=== PATIENT | female | born 1980 | race Caucasian/White ===

== ENCOUNTER 2016-12-01 10:04 | Emergency (ER) | payer OTHER ==
[~2016-12-01] VITALS: Ht 157.5 cm; Wt 68.5 kg
[~2016-12-01 10:04] MED LIST: ACET-2158 PO; Lanolin TOP; PREN-39 PO
[2016-12-01 10:06] VITALS: Ht 157.5 cm; Wt 68.5 kg
[2016-12-01] MEDS ORDERED: ONDANSETRON (ODT) 4 MG TAB ODT STA (11:31)
[2016-12-01 11:51] LABS: ADD SCAN DIFF NO
[2016-12-01 11:57] LABS: BASOPHILS % 0.5 % (0.0-2.0); EOSINOPHILS # 0.1 10^3/ul (0.0-0.5); EOSINOPHILS % 2.1 % (0.0-7.0); HEMATOCRIT 39.1 % (37.0-47.0); HEMOGLOBIN 13.2 g/dl (12.0-16.0); LYMPHOCYTES # 1.9 10^3/ul (0.8-2.9); LYMPHOCYTES % 32.2 % (15.0-51.0); MEAN CORPUSCULAR HEMOGLOBIN 28.7 pg (29.0-33.0); MEAN CORPUSCULAR HGB CONC 33.8 g/dl (32.0-37.0); MEAN PLATELET VOLUME 9.9 fl (7.4-10.4); MONOCYTE # 0.7 10^3/ul (0.3-0.9); MONOCYTES % 11.6 % (0.0-11.0); NEUTROPHIL # 3.1 10^3/ul (1.6-7.5); NEUTROPHILS % 53.4 % (39.0-77.0); PLATELET COUNT 250 10^3/UL (140-415); WHITE BLOOD COUNT 5.8 10^3/ul (4.8-10.8)
[2016-12-01] MEDS ORDERED: HYDROCODONE/APAP (5/325) TAB PO ONE (12:00)
[2016-12-01 12:11] LABS: ALBUMIN 4.9 g/dl (3.3-4.9); ALBUMIN/GLOBULIN RATIO 1.81; BILIRUBIN,INDIRECT 0.6 mg/dl (0-1.1); BILIRUBIN,TOTAL 0.6 mg/dl (0.2-1.3); CREATININE 0.6 mg/dl (0.44-1.00); POTASSIUM 4.1 mmol/L (3.5-5.1); TOTAL PROTEIN 7.6 g/dl (6.1-8.1)
[2016-12-01 12:15] LABS: ADD UMIC YES; URINE BILIRUBIN (Dip) NEGATIVE (NEGATIVE); URINE BLOOD (Dip) TRACE (NEGATIVE); URINE COLOR LT. YELLOW (YELLOW); URINE GLUCOSE (Dip) NEGATIVE (NEGATIVE); URINE KETONES (Dip) NEGATIVE (NEGATIVE); URINE LEUKOCYTE ESTERASE (Dip) 1+ (NEGATIVE); URINE NITRITE (Dip) NEGATIVE (NEGATIVE); URINE TOTAL PROTEIN (Dip) NEGATIVE (NEGATIVE); URINE UROBILINOGEN (Dip) 0.2 E.U./dL (0.1-1.0)
--- NOTE | 2016-12-01 12:15 | RADRPT ---
PROCEDURE: US Abdomen. CLINICAL INDICATION: abdominal pain TECHNIQUE: Multiple real-time images were acquired of the patient's right upper quadrant abdomen a nd retroperitoneum utilizing a high resolution transducer. COMPARISON: None FINDINGS: The liver demonstrates normal echogenicity. The liver is normal in size and no focal solid lesions are seen. The liver measures 15.1 cm in length. The portal vein is patent with normal direction of f low. No intrahepatic biliary dilatation is seen. No gallstones are identified within the gallbladder. There is no pericholecystic fluid or gallbladd er wall thickening. The common bile duct measures 2 mm in maximal dimension. The pancreas is not well seen due to overlying bowel gas. No free fluid is identified. The right kidney is normal in size, and demonstrate normal echogenicity and cortical thickness. The right kidney measures 10.2 cm in long dimension. There is no evidence of hydronephrosis. There are no kidney stones. RPTAT: AA IMPRESSION: Unremarkable right upper quadrant abdominal ultrasound. .Rajinder Melendez MD, MD Date Time Electronically viewed and signed by .Rajinder Melendez MD, MD on 12/01/2016 12:15 .S/
--- NOTE | 2016-12-01 12:20 | ERD ---
ER Documentation Chief Complaint Date/Time DATE: 12/01/16 TIME: 12:19 Chief Complaint 4 DAYS WITH NUMBNESS ON LEFT SIDE OF BODY NO OTHER NEURO DEFECITS AND AP HPI This is a 36-year-old female who presents to the emergency department today complaining of numbness on the left side of her face, neck and down into her arm for the past 4 days. States that she has had abdominal pain that started yesterday and goes to her back.. States she has had some nausea but no vomiting. Denies any dysuria, constipation, fevers or chills. States that she has not seen her registered nurse ambulatory since 2013" my ovaries feel bloated". ROS All systems reviewed and are negative except as per history of present illness. Medications Home Meds Active Scripts Ondansetron Hcl* (Zofran*) 4 Mg Tablet, 4 MG PO Q6H for NAUSEA AND/OR VOMITING, #30 TAB Prov:ILYA ALLANC 12/01/16 Nitrofurantoin Monohyd Macrocr* (Macrobid*) 100 Mg Capsr, 100 MG PO BID for 7 Days, CAP Prov:ILYA ALLANC 12/01/16 Acetaminophen* (Tylophen*) 500 Mg Capsule, 1 CAP PO Q6H Y for PAIN AND OR ELEVATED TEMP, #30 CAP Prov:ILYA ALLAN PA-C 12/01/16 Naproxen* (Naprosyn*) 500 Mg Tablet, 500 MG PO BID Y for PAIN AND/OR INFLAMMATION, #30 TAB Prov:ILYA ALLAN PA-C 12/01/16 [Lanolin] 1 APPLIC OINT No Conflict Check, 1 APPLIC TOP BEDSIDE MEDICATION Y for BEDSIDE FOR FARZAD TO NIPPLES, #1 Prov:CHELSI DAVILA MD 02/24/14 Acetaminophen (TYLENOL 325 MG TAB) 325 Mg Tab, 650 MG PO Q4H Y for PAIN LEVEL 1- 5, #20 TAB Prov:CHELSI DAVILA MD 02/24/14 Reported Medications Vits W-Ca,Fe,Fa(<1MG) ( Vitamins) 1 Tab Tablet, 1 TAB PO 02/02/14 Allergies Allergies: Coded Allergies: No Known Allergy (Unverified , 07/09/14) PMhx/Soc History of Surgery: No Anesthesia Reaction: No Hx Neurological Disorder: No Hx Respiratory Disorders: No Hx Cardiac Disorders: No Hx Psychiatric Problems: No Hx Miscellaneous Medical Probl: No Hx Alcohol Use: No Hx Substance Use: No Hx Tobacco Use: No Smoking Status: Current some day smoker Physical Exam Vitals Vital Signs Date Time Temp Pulse Resp B/P Pulse Ox O2 Delivery O2 Flow Rate FiO2 12/01/16 11:58 65 116/75 12/01/16 10:06 98.6 70 18 171/72 100 Physical Exam Const: No acute distress Head: Atraumatic Eyes: Normal Conjunctiva. PERRLA. EOM intact ENT: Normal External Ears, Nose and Mouth. Neck: Full range of motion..~ No meningismus. Resp: Clear to auscultation bilaterally Cardio: Regular rate and rhythm, no murmurs Abd: Soft, diffuse abdominal pain worse right upper quadrant and right lower quadrant non distended. Normal bowel sounds Skin: No petechiae or rashes Back: No midline or flank tenderness Ext: No cyanosis, or edema Neur: Awake and alert. No focal neurologic deficits. Cranial nerves II through XII intact. Full active range of motion of all extremities. Psych: Normal Mood and Affect Result Diagram: 12/01/16 1135 12/01/16 1135 Results 24 hrs Laboratory Tests Test 12/01/16 11:35 White Blood Count 5.810^3/ul Red Blood Count 4.6010^6/ul Hemoglobin 13.2g/dl Hematocrit 39.1% Mean Corpuscular Volume 85.0fl Mean Corpuscular Hemoglobin 28.7pg Mean Corpuscular Hemoglobin Concent 33.8g/dl Red Cell Distribution Width 13.0% Platelet Count 96653^3/UL Mean Platelet Volume 9.9fl Neutrophils % 53.4% Lymphocytes % 32.2% Monocytes % 11.6% Eosinophils % 2.1% Basophils % 0.5% Nucleated Red Blood Cells % 0.0/100WBC Neutrophils # 3.110^3/ul Lymphocytes # 1.910^3/ul Monocytes # 0.710^3/ul Eosinophils # 0.110^3/ul Basophils # 0.010^3/ul Nucleated Red Blood Cells # 0.010^3/ul Urine Color LT. YELLOW Urine Clarity CLEAR Urine pH 6.5 Urine Specific [place] <=1.005 Urine Ketones NEGATIVE Urine Nitrite NEGATIVE Urine Bilirubin NEGATIVE Urine Urobilinogen 0.2 E.U./dL Urine Leukocyte Esterase 1+ Urine Microscopic RBC 5-10/HPF Urine Microscopic WBC 5-10/HPF Urine Epithelial Cells FEW Urine Bacteria FEW Urine Hemoglobin TRACE Urine Glucose NEGATIVE% Urine Total Protein NEGATIVE Sodium Level 142mmol/L Potassium Level 4.1mmol/L Chloride Level 109mmol/L Carbon Dioxide Level 26mmol/L Anion Gap 11 Blood Urea Nitrogen 9mg/dl Creatinine 0.60mg/dl Glucose Level 87mg/dl Calcium Level 9.0mg/dl Total Bilirubin 0.6mg/dl Direct Bilirubin 0.00mg/dl Indirect Bilirubin 0.6mg/dl Aspartate Amino Transf (AST/SGOT) 19IU/L Alanine Aminotransferase (ALT/SGPT) 28IU/L Alkaline Phosphatase 62IU/L Total Protein 7.6g/dl Albumin 4.9g/dl Globulin 2.70g/dl Albumin/Globulin Ratio 1.81 Lipase 65U/L Current Medications Medications (Trade) Dose Ordered Sig/Janette Route PRN Reason Start Time Stop Time Status Last Admin Dose Admin Acetaminophen/ Hydrocodone Bitart ([place] (5/325)) 1 tab ONCE ONCE PO 12/01/16 12:00 12/01/16 12:01 DC 12/01/16 12:02 Ondansetron HCl (Zofran Odt) 4 mg ONCE STAT ODT 12/01/16 11:31 12/01/16 11:37 DC 12/01/16 12:02 DIAGNOSTIC IMAGING REPORT Patient: ONIEL RODRIGUEZ : 1980 Age: 36 Sex: F MR #: [id number] DOS: 12/01/16 1131 Ordering MD: ILYA ALLAN PA-C Location: [facility] Room/Bed: PROCEDURE: US Abdomen. CLINICAL INDICATION: abdominal pain TECHNIQUE: Multiple real-time images were acquired of the patient's right upper quadrant abdomen and retroperitoneum utilizing a high resolution transducer. COMPARISON: None FINDINGS: The liver demonstrates normal echogenicity. The liver is normal in size and no focal solid lesions are seen. The liver measures 15.1 cm in length. The portal vein is patent with normal direction of flow. No intrahepatic biliary dilatation is seen. No gallstones are identified within the gallbladder. There is no pericholecystic fluid or gallbladder wall thickening. The common bile duct measures 2 mm in maximal dimension. The pancreas is not well seen due to overlying bowel gas. No free fluid is identified. The right kidney is normal in size, and demonstrate normal echogenicity and cortical thickness. The right kidney measures 10.2 cm in long dimension. There is no evidence of hydronephrosis. There are no kidney stones. RPTAT: AA IMPRESSION: Unremarkable right upper quadrant abdominal ultrasound. .Rajinder Melendez MD, MD Date Time Electronically viewed and signed by .Rajinder Melendez MD, MD on 12/01/2016 12: 15 .S/ CC: ILYA ALLAN PA-C DIAGNOSTIC IMAGING REPORT Patient: ONIEL RODRIGUEZ : 1980 Age: 36 Sex: F MR #: [id number] DOS: 12/01/16 1131 Ordering MD: ILYA ALLAN PA-C Location: [facility] Room/Bed: PROCEDURE: CT abdomen and pelvis without contrast. CLINICAL INDICATION: Abdominal Pain TECHNIQUE: CT scan of the abdomen and pelvis without contrast was performed and is reconstructed at 2.5 mm contiguous axial intervals from the dome of the diaphragm to the inferior pubic rami.. The patient was scanned without intravenous contrast. Sagittal and coronal reformatted images were obtained from the axial source images. The calculated radiation dose measures 524 mGy centimeters. The CTDI measures 10 mGy. COMPARISON: CT abdomen pelvis March 01, 2004. FINDINGS: The lung bases are clear of any infiltrate or nodule. No effusion is seen. The liver is of normal size, contour and attenuation with no mass or ductal dilatation. No gallstones are visualized. No splenic, adrenal or pancreatic abnormalities present. Kidneys are of normal size and contour. No hydronephrosis, calculus or masses seen. Ureters are of normal course and caliber with no stone. No bladder mass or stone is present. There is no aneurysm. No adenopathy is present. No bowel mass or obstruction is present. The appendix is normal. No phlegmon or pneumoperitoneum is visualized. There is trace pelvic ascites. There is L5-S1 degenerative disk narrowing. IMPRESSION: No evidence of urolithiasis, obstructive uropathy, diverticulitis or appendicitis. L5-S1 degenerative disk narrowing. .Km Alex MD, MD Date Time Electronically viewed and signed by .Km Alex MD, on 12/01/2016 12: 27 .A/ CC: ILYA ALLAN PA-C Procedures/[facility] This a 36-year-old female who presents to the emergency department today with multiple complaints. Patient was complaining of numbness on the left side of her face and neck and left arm. She has no focal neurologic deficits. She has no gait ataxia. Her blood pressure on intake was 171/72. I did have it repeated and her blood pressure was 116/75. Do not feel the patient requires a head CT scan. I have low suspicion for acute hemorrhage, mass, abscess. Patient was also complaining of diffuse abdominal pain and back pain and therefore did obtain laboratory work as well as imaging. Laboratory work shows no elevated white blood cell count. She is not anemic. Platelets are within normal limits. Electrolites are within normal limits. Glucose is within normal limits. Liver functions within normal limits. Lipase within normal limits UA shows 1+ leukocyte Estrace. Urine test is negative. Gallbladder ultrasound is unremarkable. There is no free fluid. There are no gallstones. There is no pericholecystic fluid or gallbladder wall thickening. Common bile duct measures 2 mm in maximal dimension. CT abdomen pelvis noncontrast shows no evidence of urolithiasis, obstructive uropathy, diverticulitis or appendicitis. There is trace pelvic ascites. There is L5-S1 degenerative disc narrowing. Kidneys are normal in size. There is no hydronephrosis, calculus or mass is seen. Patient's degenerative disc narrowing may be the cause of her low back pain. Patient also has 1+ leukocyte esterase and given her complaints of abdominal pain I will treat her for urinary tract infection with Macrobid. Low suspicion for acute surgical abdomen at this time. I explained this to the patient. Patient was given [place] and Zofran here in the emergency department. I will give the patient a prescription for Naprosyn and Tylenol and Zofran for home. At this time the patient is stable for discharge and outpatient management. Patient should follow up with their PCP in the next 1-2 days. They may return to the emergency department sooner for any persistent or worsening of symptoms. Patient understood and agreed with the plan. Discussed the patient with Dr. Rosas and he is in agreement with the plan. Departure Diagnosis: Primary Impression: Multiple complaints Condition: ILYA Ordoñez PA-C Dec 01, 2016 12:20
[2016-12-01 12:25] LABS: BACTERIA,URINE FEW
--- NOTE | 2016-12-01 12:28 | RADRPT ---
PROCEDURE: CT abdomen and pelvis without contrast. CLINICAL INDICATION: Abdominal Pain TECHNIQUE: CT scan of the abdomen and pelvis without contrast was performed and is reconstructed a t 2.5 mm contiguous axial intervals from the dome of the diaphragm to the inferior pubic rami.. The patient was scanned without intravenous contrast. Sagittal and coronal reformatted images were obt ained from the axial source images. The calculated radiation dose measures 524 mGy centimeters. The CTDI measures 10 mGy. COMPARISON: CT abdomen pelvis March 01, 2004. FINDINGS: The lung bases are clear of any infiltrate or nodule. No effusion is seen. The liver is of normal size, contour and attenuation with no mass or ductal dilatation. No gallston es are visualized. No splenic, adrenal or pancreatic abnormalities present. Kidneys are of normal size and contour. No hydronephrosis, calculus or masses seen. Ureters are o f normal course and caliber with no stone. No bladder mass or stone is present. There is no aneurysm. No adenopathy is present. No bowel mass or obstruction is present. The appendix is normal. No phlegmon or pneumoperitoneum is visualized. There is trace pelvic ascites. There is L5-S1 degenerative disk narrowing. IMPRESSION: No evidence of urolithiasis, obstructive uropathy, diverticulitis or appendicitis. L5-S1 degenerative disk narrowing. .Km Alex MD, Date Time Electronically viewed and signed by .Km Alex MD, on 12/01/2016 12:27 .A/
[2016-12-01] MEDS ORDERED: NAPR-260 PO (12:54)
[2016-12-01] MEDS ORDERED: ACET500C5 PO (12:55)
[2016-12-01] MEDS ORDERED: NITR-58 PO (12:55)
[2016-12-01] MEDS ORDERED: ONDA4TAB8 PO (12:55)
[2016-12-01 13:04] VITALS: BP 124/79; PULSE 75; RESP 19; TEMP 98.4
== END 2016-12-01 13:05 | disposition home or self-care (01) ==
LOC: FTE 10:04
DX: R20.0 Anesthesia of skin (principal); R10.84 Generalized abdominal pain; R11.0 Nausea; F17.210 Nicotine dependence, cigarettes, uncomplicated
CPT/HCPCS: 74176; 76705; 80053; 81001; 83690; 85025; Z7610; 36415

== ENCOUNTER 2017-08-22 08:50 | Emergency (ER) | END 2017-08-22 12:29 | disposition home or self-care (01) ==